=== PATIENT | male | born 1985 | race Caucasian/White ===

== ENCOUNTER 2022-09-23 05:56 | Emergency (ER) | payer BC, SELFPAY ==
[2022-09-23 06:10] VITALS: BP 137/92; PULSE 73; RESP 20; TEMP 36.1; O2SAT 98; BMI 32.5
--- NOTE | 2022-09-23 06:13 | ED.NURSE ---
wound cleansed with shurclens
--- NOTE | 2022-09-23 06:17 | ED_ITS ---
HPI - Wound/Laceration General Chief Complaint: Laceration/Wound Stated Complaint: Cut LT leg Time Seen by Provider: 09/23/22 06:03 History of Present Illness HPI narrative: Pt is a 36 year old who was cutting out a stencil with a box car washer who suffered a 3 cm laceration on the front of his left thigh. Wound is well approximated. No signs of infection or deeper tissue damage. No neuromuscular defects. Pt presents for wound repair. Related Data Home Medications Medication Instructions Recorded Confirmed dextroamphetamine-amphetamine ER 20 mg PO DAILY 09/23/22 09/23/22 20 mg 24hr capsule,extend release (Adderall XR) medical marijuana .Route 09/23/22 Allergies Allergy/AdvReac Type Severity Reaction Status Date / Time No Known Drug Allergies Allergy Verified 09/23/22 06:14 Review of Systems Status of ROS: Reports: 10 or more systems reviewed and unremarkable except as noted in History and below [facility] Medical History ADHD Adjustment disorder with depressed mood Anxiety Mild depression OCD (obsessive compulsive disorder) Exam Narrative: Exam Narrative: EXAM GENERAL: Patient appears comfortable and well. EYES: No scleral icterus. LYMPH: No supraclavicular or cervical lymphadenopathy. SKIN: Laceration on the left anterior thigh as noted above. EXT: No dependent lower extremity pedal edema. ABD: Soft, non tender, non distended. PSYCH: Good eye contact, speech is not pressured. Const: Vital Signs, click to edit/add: Vital Signs - 24 hr 09/23/22 06:10 Temperature 96.9 F L Pulse Rate [Right] 73 Respiratory Rate 20 Blood Pressure [Ri ght Upper Arm] 137/92 H Pulse Oximetry 98 Oxygen Delivery Me thod Room Air Course Course Hospital Course: Wound cleaned and 1% Lidocaine with Epinephrine injected. Wound closed with 3 3- 0 Ethylon sutures. Wound dressed. Vital Signs Vital signs: Initial Vital Signs Temperature 96.9 F L 09/23/22 06:10 Temperature Source Temporal Artery Scan 09/23/22 06:10 Pulse Rate 73 09/23/22 06:10 Pulse Rhythm 09/23/22 06:10 Respiratory Rate 20 09/23/22 06:10 Blood Pressure 137/92 H 09/23/22 06:10 Blood Pressure Mean 107 09/23/22 06:10 Blood Pressure Position Semi-Fowlers 09/23/22 06:10 Pulse Oximetry 98 09/23/22 06:10 Oxygen Delivery Method 09/23/22 06:10 Vital Signs Temperature 96.9 F L 09/23/22 06:10 Pulse Rate 73 09/23/22 06:10 Respiratory Rate 20 09/23/22 06:10 Blood Pressure 137/92 H 09/23/22 06:10 Pulse Oximetry 98 09/23/22 06:10 Oxygen Delivery Method 09/23/22 06:10 Temperature 96.9 F L 09/23/22 06:10 Pulse Rate 73 09/23/22 06:10 Respiratory Rate 20 09/23/22 06:10 Blood Pressure 137/92 H 09/23/22 06:10 Pulse Oximetry 98 09/23/22 06:10 Oxygen Delivery Method 09/23/22 06:10 MDM - Wound/Laceration MDM Narrative Medical decision making narrative: Pt presents with laceration on the left thigh which was sterilely repaired. Tdap updated. Care of wound explained. Sutures out in 10 days. Differential Diagnosis Differential diagnosis: Likely laceration, abscess, abrasion and avulsion of skin Discharge Plan Discharge Clinical Impression: Laceration Patient Disposition: Home, Self-Care Condition: Stable Instructions: Laceration (ED) Additional Instructions: Daily dressing changes Sutures out in 10 days Activity Level: No Restrictions Discharge Diet: Regular Prescriptions: No Action dextroamphetamine-amphetamine [Adderall XR] 20 mg capsule,extended release 24hr 20 mg PO DAILY Label Comments: TAKE 1 CAPSULE (20 MG) BY MOUTH ONCE DAILY. medical marijuana Follow Up/Referrals: Omar Dickerson MD [Primary Care Provider] - Stand Alone [facility] Info Inst[facility]
[2022-09-23] MEDS: TETANUS/DIPHTH/PERTUSSIS 0.5 ML SYRINGE IM (06:26)
--- OUTSIDE RECORDS SUMMARY | 2022-09-23 06:33 | XMS_ITS | Clinical Summary ---
:1985 Author Organization [email or web address] [place] [address] Care Team Providers Name Role Phone Angeles Dean Primary Care Provider [phone] Allergies No known active allergies Medications Medication Sig Dispensed Refills Start Date End Date Status dextroamphetamine-amph Take 1 Capsule 30 Capsule 0 02/19/2022 Active etamine (Adderall XR) (20 mg) by 20 mg Extended-Release mouth once capsuleIndications: daily. Attention deficit hyperactivity disorder (ADHD), unspecified ADHD type ergocalciferol Take 1 Capsule 12 Capsule 0 12/22/2021 Active (VITAMIN D2; DRISDOL) (50,000 units) 50,000 unit by mouth once capsuleIndications: weekly. Vitamin D deficiency Adderall XR 20 mg TAKE ONE 30 Capsule 0 06/23/2022 Active Extended-Release CAPSULE BY capsuleIndications: MOUTH ONE TIME Attention deficit DAILY hyperactivity disorder (ADHD), unspecified ADHD type Adderall XR 20 mg TAKE ONE 30 Capsule 0 08/21/2022 Active Extended-Release CAPSULE BY capsuleIndications: MOUTH ONE TIME Attention deficit DAILY hyperactivity disorder (ADHD), unspecified ADHD type dextroamphetamine-amph Take 1 Capsule 30 Capsule 0 09/19/2022 10/19/2022 Active etamine (Adderall XR) (20 mg) by 20 mg Extended-Release mouth once capsuleIndications: daily. Attention deficit hyperactivity disorder (ADHD), unspecified ADHD type dextroamphetamine-amph Take 1 Capsule 8 Capsule 0 10/19/2022 1 12/28/2021 Active etamine (Adderall XR) (20 mg) by 20 mg Extended-Release mouth once capsuleIndications: daily. Attention deficit hyperactivity disorder (ADHD), unspecified ADHD type Active Problems Problem Noted Date Obsessive-compulsive disorder 06/26/2018 Mild depression 06/26/2018 Anxiety 03/20/2018 Controlled substance agreement signed 07/16/2014 OCD (obsessive compulsive disorder) 03/24/2011 Open wound of jaw, without mention of complication Pain, dental 03/24/2011 ADHD (attention deficit hyperactivity disorder) 2008 Overview: Updated by system to replace inactive re cord Adjustment disorder with mixed anxiety and depressed m ood 05/04/2009 Encounters Date Type Specialty Care Team Description 08/18/2022 Refill Angeles Dean, Refill Request (Adderall Xr) PA 07/19/2022 Office Visit Angeles Dean [facility] Care; Medication PA List Update (No t taking fluoxetine or v itamin d2) 07/19/2022 Travel from Last 3 Months Immunizations Name Administration Dates Next Due COVID-19 vaccine ([employer] 30mcg/0.3mL) 12YO+ 022 MARIO-SUCROSE PF, MDV COVID-19 vaccine ([employer] 30mcg/0.3mL) PF, 1 MDV Influenza, IIV4 07/19/2022, 12/21/2021 Influenza, IIV4 (=>6mos) MDV 09/09/2020, 10/15/2019 Td (Age >=7 Years) 04/23/2007 Tdap 04/20/2011 Family History Medical History Relation Name Comments Good Health Father Cancer-breast Maternal Aunt Cancer-prostate Maternal Grandfather Bipolar disorder Maternal Uncle Diabetes Mother Hypertension Mother Psychiatric illness Mother OCD Anxiety disorder Sister Relation Name Status Comments Father Alive Maternal Aunt Alive Maternal Grandfather Maternal Uncle Mother Alive Sister Alive Social History Tobacco Use Types Packs/Day Years Used Date Former Smoker Cigarettes 0.5 2 Quit: 07/17/20 20 Smokeless Tobacco: Never Used Tobacco Cessation: Counseling Given: Yes Alcohol Use Standard Drinks/Week Comments Not Currently 0 (1 standard drink = 0.6 oz pure alcoho l) occasionally Alcohol Habits Answer Date Recorded How often do you have a drink containing alcohol? 2-3 times a week 01/14/2021 How many drinks containing alcohol do you have on a 1 or 2 09/11/2019 typical day when you are drinking? How often do you have six or more drinks on one Never 09/11/2019 occasion? Comment: occasionally 07/19/2022 Sex Assigned at Date Recorded Not on file Obstetrics History Last Filed Vital Signs Vital Sign Reading Time Taken Comments Blood Pressure 129/85 07/19/2022 2:31 PM CDT Pulse 73 07/19/2022 2:31 PM CDT Temperature 36.7 ??C (98.1 ??F) 09/11/2019 4:11 PM CDT Respiratory Rate 18 02/09/2011 2:43 PM CDT Oxygen Saturation 98% 07/19/2022 2:31 PM CDT Inhaled Oxygen Concentration - - Weight 105.3 kg (232 lb 3.2 oz) 01/18/2022 3:13 PM OCCUPATIONAL THERAPIST Height 181.6 cm (5' 11.5) 01/18/2022 3:13 PM OCCUPATIONAL THERAPIST Body Mass Index 31.94 01/18/2022 3:13 PM OCCUPATIONAL THERAPIST Plan of Treatment Upcoming Encounters Date Type Specialty Care Team Description 10/27/2022 Telemedicine Nikhil Garibay, [address] [place], [place] [address] (Wo rk) Health Maintenance Due Date Last Done Comments Hepatitis C screening for age 0111/24/2005 18-79 Tetanus booster 04/20/2021 04/20/2011, 04/20/2011 (Postponed), 04/23/2007 COVID-19 vaccine series (4 - 02/15/2022 12/21/2021, 021, Booster for Pfizer series) 03/18/2021 Depression screening for age 12+ 12/22/2022 12/22/2021, 07/2022, 07/12/2021, Additional history exists BMI (ht and wt on same day) for 01/18/2023 01/18/2022, 07/2022, age 18+ 07/12/2021, Additional history exists Tdap Completed 04/20/2011 Influenza for age 9-49 Completed 07/19/2022, 12/21/2021, 09/09/2020, Additional history exists Procedures Procedure Name Priority Date/Time Associated Comments Diagnosis COMPLIANCE DRUG Routine 07/19/2022 3:34 PM Controlled Result s for this ANALYSIS CDT substance agreement kerry wise are in signed the results section. from Last 3 Months Results (ABNORMAL) COMPLIANCE DRUG ANALYSIS (07/19/2022 3:34 PM CDT) [facility] Method Time Signature 6-MONOACETYL NEG NEG ng/mL 07/25/2022 [place] MORPHINE 11:08 AM [facility] AMPHETAMINE URINE NEG <=500 07/25/2022 [place] ng/mL 11:08 AM [facility] BARBITURATE URINE NEG <=200 07/25/2022 [place] ng/mL 11:08 AM [facility] BENZODIAZEPINE URINE NEG <=100 07/25/2022 [place] ng/mL 11:08 AM [facility] BUPRENORPHRINE URINE NEG <=5 ng/mL 07/25/2022 [place] 11:08 AM [facility] COCAINE METAB URINE NEG <=300 07/25/2022 [place] ng/mL 11:08 AM [facility] ETHYLGLUCURONIDE NEG <=250 07/25/2022 [place] URINE ng/mL 11:08 AM [facility] Comment: Urine ETG (Ethylglucuronide) Re ference Range is <= 500 ng/mL. FENTANYL URINE NEG <=4 ng/mL 07/25/2022 11:08 AM [facility] METHADONE URINE NEG <=300 ng/mL 07/25/2022 11:08 AM [facility] OPIATES URINE NEG <=300 ng/mL 07/25/2022 11:08 AM [facility] OXYCODONE URINE NEG <=100 ng/mL 07/25/2022 11:08 AM [facility] PROPOXYPHENE URINE NEG <=300 ng/mL 07/25/2022 11:08 AM [facility] THC 50 URINE POS (A) <=50 ng/mL 07/25/2022 11:08 AM [facility] Comment: Urine THC confirmed positive by GC/MS. The Confirmation Threshold Concentration for Urine THC-COOH is 15 ng/mL. Urine THC-COOH = 3475 ng/mL TRAMADOL NEG <=200 ng/mL 07/25/2022 11:08 AM [facility] PH URINE 6.1 5.0 - 7.0 07/25/2022 11:08 AM SCAMMON Nate [facility] UR 97 >=20 mg/dL 07/25/2022 11:08 AM [facility] MASS SPECTROMETRY See Below 07/25/2022 11:08 AM KARLI SANTANA [facility] Comment: No other basic or neutral drugs found. Specimen Anatomical Collection Method Collection Time Receive d Time (Source) Location / / Volume Laterality Urine URINE SPECIMEN / Non-Blood / 07/19/2022 3:34 PM 07/19 3:35 Unknown Unknown CDT PM T Narrative [facility] - 022 11:08 AM [facility] Current Outpatient Medications: Adderall XR 20 mg Extended-Release capsu le, TAKE ONE CAPSULE BY MOUTH ONE TIME DAILY dextroamphetamine-amphetamine (Adderall XR) 20 mg Extended-Release capsule, Take 1 Capsule (20 mg) by mouth once daily. ergocalciferol (VITAMIN D2; DRISDOL) 50, 000 unit capsule, Take 1 Capsule (50,000 units) by mouth once weekly. FLUoxetine (PROZAC) 40 mg capsule, Take 1 Capsule (40 mg) by mouth every morning. Medical Marijuana No current facility-administered medicat ions for this visit. 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
== END 2022-09-23 06:31 | disposition home or self-care (01) ==
LOC: ED 06:31
PROVIDERS: Emergency Provider Internal Medicine; PCP Student in an Organized Health Care Education/Training Program
DX: S71.112A Laceration without foreign body, left thigh, initial encounter (principal); W26.8XXA Contact with other sharp object(s), not elsewhere classified, initial encounter; Y93.D9 Activity, other involving arts and handcrafts; Y92.9 Unspecified place or not applicable; Y99.8 Other external cause status
CPT/HCPCS: 12001; 90471; 90715; 99281; 99283